=== PATIENT | female | born 1975 | race Hispanic/Latino ===

== ENCOUNTER 2017-08-24 14:53 | Emergency (ER) | payer SELFPAY ==
[~2017-08-24] VITALS: Ht 149.9 cm; Wt 68.0 kg
[~2017-08-24 14:53] MED LIST: ULTRAM50 MG OR
[2017-08-24] MEDS ORDERED: BACTRIM DS1 TAB PO (15:09)
[2017-08-24] MEDS ORDERED: TRAMADOL HYDROC50 MG PO (15:09)
[2017-08-24 15:45] VITALS: BP 135/77
== END 2017-08-24 15:45 | disposition home or self-care (01) | DRG 603 ==
LOC: ED 14:53
PROC: 0H9QXZZ Drainage of Finger Nail, External Approach (ICD-10-PCS; principal; 2017-08-24)
DX: L03.011 Cellulitis of right finger (principal); B95.61 Methicillin susceptible Staphylococcus aureus infection as the cause of diseases classified elsewhere

== ENCOUNTER 2017-08-25 14:53 | Emergency (ER) | payer SELFPAY ==
[~2017-08-25] VITALS: Ht 149.9 cm; Wt 68.0 kg
[~2017-08-25 14:53] MED LIST changes: +BACTRIM DS1 TAB PO; +TRAMADOL HYDROC50 MG PO
[2017-08-25 15:30] VITALS: BP 135/77
== END 2017-08-25 15:30 | disposition home or self-care (01) | DRG 951 ==
LOC: ED 14:53
DX: Z48.01 Encounter for change or removal of surgical wound dressing (principal)